=== PATIENT | female | born 1990 | race Caucasian/White ===

== ENCOUNTER → 2019-08-09 07:50 | Outpatient (CLI) | payer OTHER, SELFPAY ==
[2019-08-09 07:49] VITALS: BMI 23.1
--- NOTE | 2019-08-09 07:53 | RAD_ITS ---
STUDY: X-RAY - RIGHT HAND, ATTENTION THIRD FINGER REASON FOR EXAM: Female, 29 years old. Pain and soft tissue swelling following injury. TECHNIQUE: 3 view(s) of the finger were obtained. COMPARISON: None. FINDINGS: Normal metacarpal head. Normal metacarpophalangeal joint. Normal proximal phalanx. Normal middle phalanx. Nondisplaced linear fracture of the distal phalanx of the third digit. Normal proximal interphalangeal joint. Normal distal interphalangeal joint. Soft tissue swelling. RAD/Finger(s) Min 2 Views IMPRESSION: Nondisplaced fracture of the distal phalanx of the third digit with overlying soft tissue swelling. Electronically Signed: Michael Heck, at 8:53 EST , Service support ,
== END ==
PROVIDERS: Referring Provider Physician Assistant; Visit Provider Physician Assistant
DX: S67.192A Crushing injury of right middle finger, initial encounter (principal)
CPT/HCPCS: 73140

== ENCOUNTER → 2019-08-30 08:26 | Outpatient (CLI) | payer OTHER, SELFPAY ==
[2019-08-30 08:19] VITALS: BMI 23.1
--- NOTE | 2019-08-30 08:30 | RAD_ITS ---
STUDY: X-RAY - RIGHT HAND, ATTENTION THIRD FINGER REASON FOR EXAM: Female, 29 years old. Pain after acute injury at work. TECHNIQUE: 3 view(s) of the finger were obtained. COMPARISON: None. FINDINGS: Normal metacarpal head. Normal metacarpophalangeal joint. Normal proximal phalanx. Normal middle phalanx. Nondisplaced linear type fracture, intra-articular extending from the base of the phalanx on the medial side through the terminal tuft. Normal proximal interphalangeal joint. Normal distal interphalangeal joint. RAD/Finger(s) Min 2 Views IMPRESSION: Acute nondisplaced intra-articular linear fracture of the distal phalanx of the third finger extending from the medial side of the base through the terminal tuft. Electronically Signed: Maranda Beard MD at 20:14 EST , Service support ,
== END ==
PROVIDERS: Referring Provider Physician Assistant; Visit Provider Physician Assistant
DX: S62.632A Displaced fracture of distal phalanx of right middle finger, initial encounter for closed fracture (principal)
CPT/HCPCS: 73140

== ENCOUNTER 2019-11-18 23:22 | Emergency (ER) | payer BC, SELFPAY ==
[2019-09-24 08:22] VITALS: BMI 23.1
[2019-11-18 23:23] VITALS: BP 92/62; PULSE 101; RESP 16; TEMP 36.6; O2SAT 100; BMI 23.2
[2019-11-19 00:03] VITALS: BP 90/61; PULSE 89; RESP 16; O2SAT 100
--- NOTE | 2019-11-19 00:05 | EKG12_ITS ---
Test Reason : HYPOTENSION Blood Pressure : / mmHG Vent. Rate : 084 BPM Atrial Rate : 084 BPM P-R Int : 184 ms QRS Dur : 080 ms QT Int : 402 ms P-R-T Axes : 048 084 061 degrees QTc Int : 475 ms Normal sinus rhythm Normal ECG Confirmed by SHAHEED BOURGEOIS ([id number]), desk editor LIDIA MARQUEZ ([id number]) on 11/20/2019 2:00:20 PM Referred By: SHAHLA Confirmed By:SHAHEED BOURGEOIS
[2019-11-19] MEDS: 0.9% Normal Saline 1,000 ML 999 ML IV (00:22)
[2019-11-19 00:31] LABS: Bacteria 0 SEEN /hpf (None Seen); Red Blood Cells-Urine 0 SEEN /hpf (0-5)
[2019-11-19 00:32] LABS: Absolute Lymphocyte Count 2.86 X10^3/uL (0.83-4.51); Absolute Neutrophil Count 10.2 X10^3/uL (2.0-7.7); Basophil# 0.04 X10^3/uL; Basophil% 0.3 % (0-1); Eosinophil# 0.11 X10^3/uL; Eosinophils% 0.8 % (0-5); Hematocrit 34.4 % (37-47); Hemoglobin 10.8 g/dL (12.0-15.0); Lymphocyte # 2.86 X10^3/ul (4.0); Lymphocyte % 20.1 % (19-41); Mean Corp Hgb Conc 31.4 g/dL (32-36); Mean Corpuscular Hgb 25.4 pg (27.0-32.0); Mean Corpuscular Volume 80.8 fL (81-99); Mean Platelet Vol. 9.5 fl (6.2-12.0); Monocyte# 0.95 X10^3/uL; Monocyte% 6.7 % (0-10); NRBC Flagged by Analyzer 0 % (0-5); Neutrophil # 10.21 X10^3/uL (2.7-7.7); Neutrophil % 71.7 % (47-70); Platelet Count 361 K/mm3 (150-450); RBC Distribution Width CV 16.4 % (11.6-14.6); RBC Distribution Width SD 47.8 fl (35.1-43.9); Red Blood Count 4.26 M/mm3 (4.2-5.4); White Blood Count 14.2 K/mm3 (4.4-11.0)
[2019-11-19 00:33] LABS: Color, Urine Yellow (Yellow); Glucose, Dipstick 1000 mg/dl (Normal); Ketone-Dipstick Negative (Negative); Leukocyte Esterase-Dipstick Negative /ul (Negative); Nitrite-Dipstick Negative (Negative); Occult Blood-Urine Negative /ul (Negative); Protein-Dipstick 30 mg/dl (Negative); Urine Bilirubin Dipstick Negative (Negative); Urine Clarity Clear (Clear); Urine Urobilinogen Normal (Normal)
[2019-11-19 00:36] LABS: Internal QC Validated? YES +Cl - CLEAR BKGD; Pregnancy, Urine Negative Negative
[2019-11-19 00:45] LABS: Hyaline Cast 5-10 SEEN /lpf (0-5); Mucous, Urine 2+ /hpf (<or=2+); Squamous Epithelial Cells - UA 5-10 SEEN /hpf (5-10); White Blood Cells 5-10 SEEN /hpf (0-5)
[2019-11-19 01:02] LABS: Anion Gap 6 (5-15); BUN 28 mg/dL (7-18); Calcium,Total 8.9 mg/dL (8.5-10.1); Chloride 104 mmol/L (98-107); Creatinine, Serum 1.65 mg/dL (0.55-1.02); EST Glomerular Filtration Rate 39 mL/min (>60); Est Glom Filt Rate - Afr Amer 47 mL/min (>60); Estimated Creatinine Clearance 48.48 ml/min; Glucose 300 mg/dL (74-106); Potassium 3.5 mmol/L (3.5-5.1); Sodium Level 138 mmol/L (136-145)
--- NOTE | 2019-11-19 01:38 | ED.VIS.GEN ---
History of Present Illness Chief Complaint: Hypotension Informant: Patient Onset: Hours - 1 Context: Gradual Onset Timing: Continuous Quality: lightheaded, near-syncope Current Severity: gone Maximum Severity: Severe Worsened by: standing Relieved by: sitting down, drinking fluids Associated Symptoms: low blood pressure 78/56 at work when coworkers checked it Narrative: Patient works third shift. She was at work when this occurred, she felt really weak and lightheaded, her vision got blurry like she was going to pass out. She sat down and did not lose consciousness. Her blood pressure was low they had her drink a lot of fluids and now she feels back to normal. She denies any preceding chest pain, shortness of breath, palpitations, or focal neurologic symptoms or headache. She states she slept most of the evening and afternoon prior to going to work, she ate and drink prior to sleeping but between sleeping and going to work she really did not have much to drink. She is an insulin-dependent type 2 diabetic and does not know what her blood sugar was tonight. 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 Denies: Chills, Fever, Sweats Eyes: Denies: Visual changes - bilaterally, Diplopia ENT: Denies: Rhinorrhea, Sore throat Cardiovascular: Denies: Chest pain, Palpitations Respiratory: Denies: Dyspnea, Cough, Dyspnea on exertion Gastrointestinal: Denies: Abdominal pain, Nausea, Vomiting, Diarrhea, Melena, Hematochezia Genitourinary: Reports: Frequency. Denies: Dysuria, Hematuria Musculoskeletal: Denies: Back pain, Swelling, Extremity Pain Skin: Denies: Rash, Wounds Neurological: Denies: Headache, Weakness, Numbness Physical Exam Vital Signs/Narrative: Vital Signs Temp Pulse Resp BP Pulse Ox 11/19/19 00:03 89 16 90/61 100 11/18/19 23:23 97.9 F 101 H 16 92/62 100 Inital Vital Signs reviewed: Yes General: Well nourished, Well developed, No Acute Distress - Well-appearing, conversive in full sentences Head: Normocephalic, Atraumatic Eyes: Perrl, EOMI ENT: Moist mucous membranes, No rhinorrhea Neck: Supple, Nontender, No lymphadenopathy, No JVD Cardiovascular: Regular rate, Regular rhythm, No murmurs, Tachycardia - Mild Respiratory: No distress, CTA bilaterally, Chest nontender Abdomen: Soft, Nontender, Nondistended, Normal bowel sounds Back: Nontender, Normal Inspection Extremities: Nontender, No edema. Negative for: Calf Tenderness Skin: Normal color, No rash, No Trauma Neurological: Alert, Oriented x3, Cranial nerves II-XII grossly intact, Normal Strength, Normal Sensation Psychological: Normal affect, Normal Mood Diagnostic/Tx/Re-eval Laboratory Tests 11/19/19 11/19/19 11/19/19 Range/Units 00:22 00:22 00:15 WBC 14.2 H (4.4-11.0) K/mm3 RBC 4.26 (4.2-5.4) M/mm3 Hgb 10.8 L (12.0-15.0) g/dL Hct 34.4 L (37-47) % MCV 80.8 L (81-99) fL MCH 25.4 L (27.0-32.0) pg MCHC 31.4 L (32-36) g/dL RDW Std Deviation 47.8 H (35.1-43.9) fl RDW Coeff of Yvette 16.4 H (11.6-14.6) % Plt Count 361 (150-450) K/mm3 MPV 9.5 (6.2-12.0) fl Immature Gran % (Auto) 0.400 (0.0-0.9) % Neut % (Auto) 71.7 H (47-70) % Lymph % (Auto) 20.1 (19-41) % [place] % (Auto) 6.7 (0-10) % Eos % (Auto) 0.8 (0-5) % Baso % (Auto) 0.3 (0-1) % Absolute Neuts (auto) 10.2 H (2.0-7.7) X10^3/uL Absolute Lymphs (auto) 2.86 (0.83-4.51) X10^3/uL Nucleated RBC % 0 (0-5) % Sodium 138 (136-145) mmol/L Potassium 3.5 (3.5-5.1) mmol/L Chloride 104 (98-107) mmol/L Carbon Dioxide 28.0 (21.0-32.0) mmol/L Anion Gap 6 (5-15) BUN 28 H (7-18) mg/dL Creatinine 1.65 H (0.55-1.02) mg/dL Estim Creat Clear Calc 48.48 ml/min Est GFR (MDRD) Af Amer 47 L (>60) mL/min Est GFR (MDRD) Non-Af 39 L (>60) mL/min BUN/Creatinine Ratio 17.0 (10-20) RATIO Glucose 300 H (74-106) mg/dL Calcium 8.9 (8.5-10.1) mg/dL Urine Color Yellow (Yellow) Urine Clarity Clear (Clear) Urine pH 5.0 (5.0 - 8.0) Ur Specific Lynch 1.020 (1.002-1.030) Urine Protein 30 H (Negative) mg/dl Urine Glucose (UA) 1000 H (Normal) mg/dl Urine Ketones Negative (Negative) mg/dl Urine Occult Blood Negative (Negative) /ul Urine Nitrite Negative (Negative) Urine Bilirubin Negative (Negative) mg/dL Urine Urobilinogen Normal (Normal) mg/dl Ur Leukocyte Esterase Negative (Negative) /ul Urine RBC 0 SEEN (0-5) /hpf Urine WBC 5-10 SEEN (0-5) /hpf Ur Squamous Epith Cells 5-10 SEEN (5-10) /hpf Urine Bacteria 0 SEEN (None Seen) /hpf Hyaline Casts 5-10 SEEN (0-5) /lpf Urine Mucus 2+ (<or=2+) /hpf Urine Test Negative 11/19/19 Range/Units 00:15 WBC (4.4-11.0) K/mm3 RBC (4.2-5.4) M/mm3 Hgb (12.0-15.0) g/dL Hct (37-47) % MCV (81-99) fL MCH (27.0-32.0) pg MCHC (32-36) g/dL RDW Std Deviation (35.1-43.9) fl RDW Coeff of Yvette (11.6-14.6) % Plt Count (150-450) K/mm3 MPV (6.2-12.0) fl Immature Gran % (Auto) (0.0-0.9) % Neut % (Auto) (47-70) % Lymph % (Auto) (19-41) % [place] % (Auto) (0-10) % Eos % (Auto) (0-5) % Baso % (Auto) (0-1) % Absolute Neuts (auto) (2.0-7.7) X10^3/uL Absolute Lymphs (auto) (0.83-4.51) X10^3/uL Nucleated RBC % (0-5) % Sodium (136-145) mmol/L Potassium (3.5-5.1) mmol/L Chloride (98-107) mmol/L Carbon Dioxide (21.0-32.0) mmol/L Anion Gap (5-15) BUN (7-18) mg/dL Creatinine (0.55-1.02) mg/dL Estim Creat Clear Calc ml/min Est GFR (MDRD) Af Amer (>60) mL/min Est GFR (MDRD) Non-Af (>60) mL/min BUN/Creatinine Ratio (10-20) RATIO Glucose (74-106) mg/dL Calcium (8.5-10.1) mg/dL Urine Color (Yellow) Urine Clarity (Clear) Urine pH (5.0 - 8.0) Ur Specific Lynch (1.002-1.030) Urine Protein (Negative) mg/dl Urine Glucose (UA) (Normal) mg/dl Urine Ketones (Negative) mg/dl Urine Occult Blood (Negative) /ul Urine Nitrite (Negative) Urine Bilirubin (Negative) mg/dL Urine Urobilinogen (Normal) mg/dl Ur Leukocyte Esterase (Negative) /ul Urine RBC (0-5) /hpf Urine WBC (0-5) /hpf Ur Squamous Epith Cells (5-10) /hpf Urine Bacteria (None Seen) /hpf Hyaline Casts (0-5) /lpf Urine Mucus (<or=2+) /hpf Urine Test Negative Negative - Rhythm Strip Rhythm Strip: Sinus Rhythm Rate: 84 Ectopy: None - EKG Initial EKG Interpretation: Sinus Rhythm, No Acute Injury Pattern - Normal EKG. Normal axis. Prior: No Prior - Medical Decision Making Patient was given a liter of IV fluids. Her blood work shows renal insufficiency with a creatinine of 1.65. She showed me some recent blood work, her creatinine was 1.45. She states that sounds like baseline for her. Her blood sugar was 300 today. After the IV fluids, the patient's blood sugar is 205. She does sliding scale insulins at home and is comfortable with discharge. She feels much better. Her blood pressure was better after the fluid she drank prior to coming here. No sign of any infection in the urine, just glycosuria. I suspect her creatinine is abnormal for her because of dehydration, secondary to hyperglycemia and subsequent diuresis. Stable for discharge. ED Disposition - Plan for ED Patient: Disposition: Home or Assisted Living Diagnosis: Acute on chronic renal insufficiency, Dehydration, Hyperglycemia due to type 2 diabetes mellitus Instructions: HYPOTENSION, Orthostatic, ED Diabetic Hyperglycemia Referrals: Fatimah Merrill PA [Primary Care Provider] - As Needed
--- NOTE | 2019-11-19 01:39 | ED.RN ---
MD jean with using BG from pt continuous blood glucose monitor, result of 205.
[2019-11-19 02:02] VITALS: BP 98/65; PULSE 88; RESP 17; O2SAT 98
== END 2019-11-19 02:02 | disposition home or self-care (01) ==
PROVIDERS: Emergency Provider Emergency Medicine; PCP Physician Assistant Medical
DX: E11.22 Type 2 diabetes mellitus with diabetic chronic kidney disease (principal); N18.9 Chronic kidney disease, unspecified; N17.9 Acute kidney failure, unspecified; E86.0 Dehydration; E11.65 Type 2 diabetes mellitus with hyperglycemia; E78.5 Hyperlipidemia, unspecified; E11.42 Type 2 diabetes mellitus with diabetic polyneuropathy; F32.9 Major depressive disorder, single episode, unspecified; Z85.72 Personal history of non-Hodgkin lymphomas; Z94.81 Bone marrow transplant status; Z79.4 Long term (current) use of insulin; Z79.899 Other long term (current) drug therapy; F17.200 Nicotine dependence, unspecified, uncomplicated
CPT/HCPCS: 80048; 81001; 81025; 85025; 93005; 96360; 99283; J7030

== ENCOUNTER 2020-03-16 23:02 | Emergency (ER) | payer BC, SELFPAY ==
[2020-03-16 23:04] VITALS: BP 100/64; PULSE 115; RESP 18; TEMP 36.6; O2SAT 99; BMI 23.5
[2020-03-16 23:29] VITALS: BP 102/73; BP 94/70; BP 97/69; PULSE 115; PULSE 89; PULSE 91
[2020-03-16 23:45] LABS: Bacteria 0 SEEN /hpf (None Seen); Mucous, Urine 0 SEEN /hpf (<or=2+)
[2020-03-16 23:47] LABS: Color, Urine Yellow (Yellow); Glucose, Dipstick 1000 mg/dl (Normal); Ketone-Dipstick 5 mg/dl (Negative); Leukocyte Esterase-Dipstick Negative /ul (Negative); Nitrite-Dipstick Negative (Negative); Occult Blood-Urine 10 /ul (Negative); Protein-Dipstick 100 mg/dl (Negative); Specific Gravity, Urine 1.015 (1.002-1.030); Urine Bilirubin Dipstick Negative (Negative); Urine Clarity Clear (Clear); Urine Urobilinogen Normal (Normal)
[2020-03-16 23:56] LABS: Red Blood Cells-Urine 5-10 SEEN /hpf (0-5); Squamous Epithelial Cells - UA 0-5 SEEN /hpf (5-10); White Blood Cells 0-5 SEEN /hpf (0-5)
[2020-03-17 00:07] LABS: Absolute Lymphocyte Count 3.52 X10^3/uL (0.83-4.51); Absolute Neutrophil Count 7.6 X10^3/uL (2.0-7.7); Basophil# 0.04 X10^3/uL; Basophil% 0.3 % (0-1); Eosinophils% 0.8 % (0-5); Hemoglobin 11.4 g/dL (12.0-15.0); Lymphocyte # 3.52 X10^3/ul (4.0); Lymphocyte % 29.4 % (19-41); Mean Corp Hgb Conc 31.7 g/dL (32-36); Mean Corpuscular Hgb 26.4 pg (27.0-32.0); Mean Corpuscular Volume 83.3 fL (81-99); Mean Platelet Vol. 9.2 fl (6.2-12.0); Monocyte# 0.65 X10^3/uL; Monocyte% 5.4 % (0-10); NRBC Flagged by Analyzer 0 % (0-5); Neutrophil # 7.61 X10^3/uL (2.7-7.7); Neutrophil % 63.8 % (47-70); Platelet Count 396 K/mm3 (150-450); RBC Distribution Width CV 14.9 % (11.6-14.6); RBC Distribution Width SD 44.3 fl (35.1-43.9); Red Blood Count 4.32 M/mm3 (4.2-5.4)
[2020-03-17 00:18] LABS: Internal QC Validated? YES +Cl - CLEAR BKGD; Pregnancy, Serum, hCG Quali. NEGATIVE Negative
[2020-03-17 00:26] LABS: Anion Gap 6 (5-15); BUN 28 mg/dL (7-18); Calcium,Total 9.5 mg/dL (8.5-10.1); Chloride 104 mmol/L (98-107); Creatinine, Serum 1.75 mg/dL (0.55-1.02); EST Glomerular Filtration Rate 36 mL/min (>60); Est Glom Filt Rate - Afr Amer 44 mL/min (>60); Glucose 315 mg/dL (74-106); Potassium 4.2 mmol/L (3.5-5.1); Sodium Level 139 mmol/L (136-145)
[2020-03-17 00:40] VITALS: BP 102/73; PULSE 91; RESP 15
--- NOTE | 2020-03-17 00:41 | ED.DCSUM_ITS ---
- ER Visit Summary Date of Service: 03/17/20 Chief Complaint: [Low blood pressure and dizziness] History of Present Illness: The patient is a 30 F presents to the emergency department with complaint of feeling lightheaded while at work today. 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 Patient began feeling lightheaded and nauseated. She did not pass out. Patient's had similar events in the past where she is been at work and passed out. Patient also tells me that she is her blood pressures been running low at times intermittently over the last week or so it has been in the 80 systolic. Patient states normally her blood pressure runs low and does not get much above 110 systolic. Patient denies recent illness. SHe denies any fever or cough. Patient denies vomiting or diarrhea. She denies blood in her stool or black tarry stool. Patient has history of diabetes, cholesterol, non-Hodgkin's lymphoma, and depression. Physical Examination: [HEENT-PERRLA, EOMI. Cranial nerves II through XII grossly intact. TMs clear. Mucous membranes moist. No adenopathy. Cardiovascular-regular rate and rhythm without murmur or ectopy Lungs-clear to auscultation, chest wall stable without crepitus or subcu emphysema Abdomen-normoactive bowel sounds, soft, nontender, no rebound or rigidity, no peritoneal signs. Extremities-intact ?4, normal range of motion, normal pulses, atraumatic] Test Results: [CBC with differential obtained showed a white count 12.0, hemoglobin 11, hematocrit 36, placed 396. Chemistries unremarkable. Glucose was 315. BUN 28 and creatinine 1.75. Urinalysis was significant for glucose and mild ketones. hCG was negative.] Orthostatic vital signs were negative. Emergency Department Course and Treatment: [IV line was ordered on arrival however patient is a very difficult IV stick due to prior history of non- Hodgkin's lymphoma and chemotherapy. Multiple attempts were made at IV access unsuccessfully. I offered to continue attempts and possibly place an EJ however she declined. I do not feel patient needs emergent IV access.] Treatment Plan: [Patient advised to push fluids. Patient will take insulin when she gets home does not want to have IM insulin in the department.] Disposition: [Discharged home in stable condition] Impression: [Vasovagal presyncope Hyperglycemia Mild dehydration] This note was generated with Dragon dictation software. It may contain incorrect words, spelling, and punctuation that were not noted in review of the chart prior to signing ED Disposition - Plan for ED Patient: Referrals: Fatimah Merrill PA [Primary Care Provider] -
--- NOTE | 2020-03-17 00:44 | ED.DEP ---
ED Disposition - Plan for ED Patient: Instructions: ED Low Blood Pressure All Causes, ED Near Syncope Vasovagal, ED Diabetic Hyperglycemia Referrals: Fatimah Merrill PA [Primary Care Provider] - 3-5 Days
== END 2020-03-17 00:53 | disposition home or self-care (01) ==
LOC: ED 23:58
PROVIDERS: Emergency Provider Emergency Medicine; PCP Physician Assistant Medical
DX: R55 Syncope and collapse (principal); E11.65 Type 2 diabetes mellitus with hyperglycemia; E86.0 Dehydration; F32.9 Major depressive disorder, single episode, unspecified; Z85.72 Personal history of non-Hodgkin lymphomas; Z92.21 Personal history of antineoplastic chemotherapy; Z79.4 Long term (current) use of insulin; Z79.899 Other long term (current) drug therapy
CPT/HCPCS: 80048; 81001; 84703; 85025; 99283; J7030; A4216